=== PATIENT | male | born 1980 | race Caucasian/White ===

== ENCOUNTER 2025-06-13 11:25 | Emergency (ER) | payer OTHER ==
[~2025-06-13] VITALS: Ht 188 cm; Wt 108.9 kg
[~2025-06-13 11:25] MED LIST: LOVA10TA2 PO; MULT-1203 PO; SERT25TA PO
--- NOTE | 2025-06-13 11:32 | ERN ---
ED Note History of Present Illness Stated Complaint: LEFT RIB PAIN Chief Complaint: Rib Pain Time Seen by MD: 11:27 Dictation: PATIENT IS A 44-YEAR-OLD MALE HERE WITH HIS WITH COMPLAINTS OF OF A CHEST PAIN PRESSURE AND HEAVINESS TO THE LEFT ANTERIOR INFERIOR CHEST. STATES THE ONSET WAS 1 HOUR PRIOR TO ARRIVAL. DENIES JAW PAIN BACK PAIN NO ARM PAIN. STATES HE HAS A HISTORY OF CHOLESTEROL. NO HISTORY OF CARDIAC DISEASE NO GUIDE ESCORT'S. PATIENT OF DR. JAYCOB VELAZCO Allergies: Coded Allergies: clarithromycin (Unverified Allergy, Unknown, THROAT SWELLS, 04/23/15) erythromycin base (Unverified Allergy, Unknown, THROAT SWELLS, 04/23/15) Home Meds Reported Medications Multivitamin (Multi Vitamin Daily) 1 Each Tablet, 1 EACH PO WEEKLY, TAB 04/23/15 Lovastatin (Lovastatin) 10 Mg Tablet, 10 MG PO PM, TAB 04/23/15 Sertraline HCl (Zoloft) 25 Mg Tablet, 100 MG PO PM, TAB 04/23/15 Past Medical History Past Medical History: Anxiety, High Cholesterol Surgical History: Other Surgical History Other: left hip, lipoma removal RN Note Reviewed/Agreed w/PFSH: Yes Review of System Dictation CONSTITUTIONAL: NEGATIVE EXCEPT FOR HPI HEAD/FACE: NEGATIVE EXCEPT FOR HPI EENT: NEGATIVE EXCEPT FOR HPI RESPIRATORY: NEGATIVE EXCEPT FOR HPI LEFT ANTERIOR INFERIOR CHEST WALL PAIN HEAVINESS GASTROINTESTINAL/ABDOMINAL: NEGATIVE EXCEPT FOR HPI GENITOURINARY: NEGATIVE EXCEPT FOR HPI MUSCULOSKELETAL: NEGATIVE EXCEPT FOR HPI INTEGUMENTARY: NEGATIVE EXCEPT FOR HPI NEUROLOGICAL/PSYCH: NEGATIVE EXCEPT FOR HPI HEMATOLOGIC/LYMPHATIC: NEGATIVE EXCEPT FOR HPI ALL SYSTEMS NEGATIVE, EXCEPT NOTED ABOVE. 13 POINT REVIEW OF SYSTEMS ASSESSED AND ALL NEGATIVE EXCEPT FOR ABOVE. Initial Vital Sign VS Vital Signs Date Time Temp Pulse Resp B/P (MAP) Pulse Ox O2 Delivery O2 Flow Rate FiO2 06/13/25 11:28 96.1 71 18 112/71 98 Room Air 06/13/25 11:30 0 21 Physical Exam Dictation VITAL SIGNS REVIEWED GENERAL APPEARANCE: ALERT, ORIENTED X 3, MODERATE ACUTE DISTRESS, WELL DEVELOPED, NOURISHED. HEAD AND FACE: NON-TRAUMATIC. EYES: PERRL, PINK CONJUNCTIVAS, EYELID NO TRAUMA, ANTERIOR CHAMBER WITH ARCUS SENILIS. EARS: PINNAS INTACT AND NO SIGNS OF TRAUMA OR ERYTHEMA EAR CANALS CLEAR AND NO DISCHARGE TM NO ERYTHEMA NOSE: NO DISCHARGE, NO BLEEDING. OROPHARYNX: MOUTH NORMAL, TONGUE PINK, PHARYNX CLEAR,NO ERYTHEMA, TONSILS NO EXUDATES, NO ABSCESSES NOTED, MUCOUS MEMBRANE MOIST NECK: SUPPLE, NON-TENDER, NO THYROMEGALY, NO MASSES, NO JVD, NO BRUITS BREAST:DEFERRED CHEST:NO TENDERNESS, NO CREPITUS, NO PARADOXICAL MOVEMENT, NO RETRACTIONS pain is not reproducible with cough or palpation. Patient states when he turns in twist he feels the pain. LUNGS:CLEAR, WELL-VENTILATED, SYMMETRIC, NO RALES, NO WHEEZING, NO RHONCHI, NO STRIDOR, GOOD BREATH SOUNDS BILATERALLY HEART: REGULAR RATE, REGULAR RHYTHM, NO MURMUR, NO GALLOPS VASCULAR: NO PERIPHERAL EDEMA, ABDOMEN: SOFT, POSITIVE BOWEL SOUNDS, NONDISTENDED, NO GUARDING, NONTENDER, NO REBOUND, NO MASSES NO HEPATOMEGALY, NO SPLENOMEGALY, NO NICHOLSON'S SIGN, NO HERNIAS. NO FOCAL PAIN RECTAL: DEFERRED GENITAL: DEFERRED NEUROLOGICAL: NORMAL SPEECH, MOTOR FUNCTION INTACT, SENSORY FUNCTION INTACT MUSCULOSKELETAL: NECK NONTENDER, FULL RANGE OF MOTION, BACK NONTENDER, FULL RANGE OF MOTION, EXTREMITIES: NONTENDER, FULL RANGE OF MOTION SKIN: COLOR PINK, DRY, NO TURGOR, NO RASH, NO LACERATIONS, NO ABRASIONS, NO CONTUSIONS. LYMPHATIC: DEFERRED Results (Laboratory/Radiology) Laboratory/Radiology Laboratory Tests Test 06/13/25 11:43 06/13/25 12:35 White Blood Count 6.1 K/uL (4.8-10.8) Red Blood Count 5.05 MIL/uL (4.50-6.20) Hemoglobin 15.1 g/dL (14.0-18.0) Hematocrit 43.3 % (42-54) Mean Corpuscular Volume 85.7 fL (79-99) Mean Corpuscular Hemoglobin 29.9 pg (27.0-33.0) Mean Corpuscular Hemoglobin Concent 34.9 g/dL (32.0-36.0) Red Cell Distribution Width 12.0 % (11.0-15.5) Platelet Count 277 K/uL (130-400) Mean Platelet Volume 9.7 fL (7.5-10.5) Immature Granulocyte % (Auto) 0.3 % (0-1) Neutrophils (%) (Auto) 55.3 % (40.0-77.0) Lymphocytes (%) (Auto) 33.3 % (21.0-51.0) Monocytes (%) (Auto) 7.2 % (3.0-13.0) Eosinophils (%) (Auto) 3.4 % (0.0-8.0) Basophils (%) (Auto) 0.5 % (0.0-5.0) Neutrophils # (Auto) 3.4 K/uL (1.8-7.7) Lymphocytes # (Auto) 2.0 K/uL (1.0-4.8) Monocytes # (Auto) 0.4 K/uL (0.1-1.0) Eosinophils # (Auto) 0.21 K/uL (0.00-0.70) Basophils # (Auto) 0.03 K/uL (0.00-0.20) Absolute Immature Granulocyte (auto 0.02 K/uL (0-1) Nucleated Red Blood Cells 0.0 % (0.0-0.19) Sodium Level 137 mmol/L (136-145) Potassium Level 4.2 mmol/L (3.5-5.1) Chloride Level 102 mmol/L (101-111) Carbon Dioxide Level 26 mmol/L (21-32) Blood Urea Nitrogen 16 mg/dL (7-18) Creatinine 1.0 mg/dL (0.5-1.3) Glomerular Filtration Rate Calc 94 mL/min (>90) Random Glucose 100 mg/dL (70-105) Total Calcium 8.9 mg/dL (8.5-10.1) Troponin I High Sensitivity 6 ng/L (4-75) Lipase 55 U/L (16-77) Urine Color LIGHT-YELLOW (YELLOW) Urine Appearance CLEAR (CLEAR) Urine pH 6.0 (5.0-8.0) Urine Specific [place] 1.020 (1.001-1.031) Urine Protein NEGATIVE mg/dL (NEGATIVE) Urine Glucose (UA) NEGATIVE mg/dL (NEGATIVE) Urine Ketones NEGATIVE mg/dL (NEGATIVE) Urine Occult Blood NEGATIVE (NEGATIVE) Urine Nitrate NEGATIVE (NEGATIVE) Urine Bilirubin NEGATIVE mg/dL (NEGATIVE) Urine Urobilinogen 0.2 mg/dL (0.2-1.0) Urine Leukocyte Esterase NEGATIVE Thuy/uL 1210/CHEST X-RAY NEGATIVE Labs Reviewed?: Yes EKG: (+) NSR EKG Comment: EKG NORMAL SINUS RHYTHM/HEART RATE 63/AXIS NORMAL/NO ECTOPY ED Course ED Course Orders Procedure Category Date Status Time Cbc With Differential LAB 06/13/25 Complete 11:29 Troponin I High LAB 06/13/25 Complete Sensitivity 11:29 12 Lead Ekg Tracing- EKG 06/13/25 Complete Technical 11:29 Chest 1vw RAD 06/13/25 Resulted 11:29 Lipase LAB 06/13/25 Complete 11:29 Basic Metabolic Panel LAB 06/13/25 Complete 11:29 Urinalysis Profile LAB 06/13/25 Complete 12:12 Ketorolac 60mg/2ml PHA 06/13/25 Complete (Toradol 60mg/2ml) 12:30 Current Medications Medications (Trade) Dose Ordered Sig/Jackson Route PRN Reason Start Time Stop Time Status Last Admin Dose Admin Ketorolac Tromethamine (toRADol 60MG/ 2ML) 60 mg ONCE ONCE IM 06/13/25 12:30 06/13/25 12:31 DC 06/13/25 12:26 Vital Signs Date Time Temp Pulse Resp B/P (MAP) Pulse Ox O2 Delivery O2 Flow Rate FiO2 06/13/25 11:30 96.8 71 18 112/71 98 Room Air* 0 21 06/13/25 11:28 96.1 71 18 112/71 98 Room Air 1250/patient pain is resolving with ketorolac. He is aware that has workup is completely negative. We will be treated for costochondritis and told to see his primary care doctor. HEART Score Response (Comments) Value History: Low suspicion (0) 0 Age: 45-65yrs (+1) 1 Risk Factors: 1-2 risk factors (+1) 1 Initial Troponin: Normal limit (0) 0 Total 2 Medical Decision Making MDM MDM: Differential diagnosis: ACS/AMI/pancreatitis/pneumonia/bronchitis/urolithiasis/ureter colic/musculoskeletal pain Rationale: Tests considered and ordered secondary to shared decision making include: EKG/labs/radiology Previous outside records reviewed: Old ER visits. Risk of complication and/or morbidity or mortality of patient management: None Medications-Per medication reconciliation Need for hospitalization: Patient does not meet criteria for hospitalization. No Need for emergency major/minor surgery: No There are no social concerns with this patient. Prescription drug management ibuprofen Prescriptions will include symptomatic care Patient's prior external medical records from other ER visits were reviewed by me as indicated. Prior testing and results from previous visits were reviewed. Prior tests were taken into account with medical decision making and resource utilization, independent historian/historians were used to obtain complete medical history. I independently interpreted the test that were performed, results were reviewed by me and considered findings on radiology if ordered. Medical management and examination interpretation discussions were had by me with other qualified healthcare professionals as indicated for the patient's care. DX & DISP Disposition: Discharge Departure Impression: Primary Impression: Costochondritis, acute Condition: Stable Scripts Ibuprofen (Ibuprofen 800 mg Tab) 800 Mg Tab 800 MG PO Q8H PRN for fever or pain, #30 TAB 0 Refills Prov: DRAKE LOOMIS NP 06/13/25 Additional Instructions: Follow-up with primary care provider in 1 to 2 days. Take medications as directed here in the emergency room. Okay to continue home medications unless otherwise discussed during your visit in the emergency room today. Return to your nearest emergency room if symptoms worsen or if there is no improvement. Call 911 if you need immediate assistance. Take Tylenol or Motrin [id number] as needed and if no contraindications are present. Increase oral hydration. A wound culture or urine culture was ordered here in the emergency room department please follow-up with primary care provider and advise them to get repeat ports from our facility. If you had any John wrap/splints that were applied here, please do not remove them until you see your primary care or specialty. Take ibuprofen every 8 hours with food for the next two days. Diet and activity as tolerated, follow up with your primary care doctor as needed. Referrals: LONNIE FERNANDEZ MD (PCP) Time of Disposition: 12:54 I have reviewed the case, and I agree with, Diagnosis and Plan DRAKE LOOMIS NP Jun 13, 2025 11:32
--- NOTE | 2025-06-13 11:40 | EKG ---
[facility] Test Date: 2025-06-13 Test Time: 11:36:02 Pat Name: LORAINE DIAMOND Department: ED Room: Gender: [employer]: [facility] : 1980 Requested By: DRAKE LOOMIS Order Number: [id number] Reading MD: Herman De La Garza Measurements Intervals [place] Rate: 63 P: 43 NH: 162 QRS: -1 QRSD: 98 T: 30 QT: 433 QTc: 445 Interpretive Statements Sinus rhythm Compared to ECG 04/23/2015 10:02:03 No significant changes Electronically Signed On 06-13-2025 13:42:16 CDT by Herman De La Garza Please click the below link to view image of tracing.
[2025-06-13 11:49] LABS: IMMATURE GRANULOCYTE ABSOLUTE 0.02 K/uL (0-1); NUCLEATED RED BLOOD CELLS 0.0 % (0.0-0.19); PLATELET COUNT (AUTO) 277 K/uL (130-400); RED BLOOD CELL COUNT(AUTO) 5.05 MIL/uL (4.50-6.20); RED CELL DISTRIBUTION WIDTH 12.0 % (11.0-15.5); WHITE BLOOD COUNT (AUTO) 6.1 K/uL (4.8-10.8)
[2025-06-13 11:58] LABS: CREATININE 1.0 mg/dL (0.5-1.3); GLOMERULAR FILTR. RATE CALC 94.0 mL/min (>90); GLUCOSE,RANDOM 100.0 mg/dL (70-105); SODIUM SERUM 137.0 mmol/L (136-145); UREA NITROGEN, BLOOD 16.0 mg/dL (7-18)
--- NOTE | 2025-06-13 12:15 | HMCIMG ---
CHEST 1VW REASON: LEFT ANTERIOR INFERIOR CHEST PAIN COMPARISON: Prior study from 07/17/2024 is available. FINDINGS: Single view of the chest was obtained. Lungs are clear. Heart size is normal. There is no pulmonary vascular congestion. Mediastinum and bony thorax appear unremarkable. IMPRESSION: 1 unchanged from prior study with no acute cardiopulmonary process.
[2025-06-13 12:48] LABS: APPEARANCE,URINE CLEAR (CLEAR); GLUCOSE, URINE (UA) NEGATIVE (NEGATIVE); LEUKOCYTE ESTERASE ,URINE NEGATIVE Leu/uL (NEGATIVE); NITRATE,URINE NEGATIVE (NEGATIVE); OCCULT BLOOD,URINE NEGATIVE (NEGATIVE)
[2025-06-13 12:51] LABS: ADD UA MICROSCOPIC NO
[2025-06-13] MEDS ORDERED: IBUP-2077 PO (12:55)
[2025-06-13 13:03] VITALS: BP 118/67; PULSE 70; RESP 16; TEMP 96.8; O2SAT 98
== END 2025-06-13 13:06 | disposition home or self-care (01) ==
LOC: EDH 11:25
DX: M94.0 Chondrocostal junction syndrome [Tietze] (principal); F41.9 Anxiety disorder, unspecified; E78.00 Pure hypercholesterolemia, unspecified; Z88.1 Allergy status to other antibiotic agents
CPT/HCPCS: 99285; 71045; 84484; 80048; 83690; 85025; 81003; 36415; 96372; 93005; J1885

== ENCOUNTER → 2025-09-06 | Outpatient (CLI) | payer OTHER ==
[~2025-09-06] MED LIST changes: +IBUP-2077 PO
--- NOTE | 2025-09-06 20:32 | HMCIMG ---
STUDY: X-RAY OF THE CHEST, 2 VIEWS HISTORY: Wheezing. TECHNIQUE: PA and lateral views of the chest are submitted for interpretation. COMPARISON: Chest radiograph from 06/13 at 11:34 EDT. FINDINGS: Pulmonary mcduffie: Lungs are clear without focal consolidation, pulmonary edema, or suspicious pulmonary nodule. Symmetric aeration bilaterally. Cardiac silhouette: Cardiac silhouette is within normal limits in size and contour. Mediastinum and alan: Mediastinal contours and alan are unremarkable without evidence of mass or widening. Trachea is midline. Osseous structures: Visualized ribs, clavicles, scapulae, and thoracic spine show no acute osseous abnormality. Miscellaneous: No pleural effusion or pneumothorax. Costophrenic angles are sharp bilaterally. No subdiaphragmatic free air. IMPRESSION: * No acute cardiopulmonary abnormality. * Compared with the chest radiograph from 06/13 at 11:34 EDT, there is no significant interval change; stable appearance. /[place]
== END | disposition home or self-care (01) ==
LOC: RAH 14:07
PROVIDERS: ATTEND Internal Medicine
DX: R06.2 Wheezing (principal)
CPT/HCPCS: 71046